=== PATIENT | female | born 1995 | race Caucasian/White ===

== ENCOUNTER 2024-12-17 16:58 | Inpatient (IN) | payer BC, SELFPAY ==
[2024-12-17 17:28] VITALS: BP 128/69; BMI 29.0
[2024-12-17 20:59] LABS: % Basophils 0.3 % (0-2); % Eosinophils 1.1 % (0-6); % Immature Granulocytes 0.9 % (0-0.5); % Lymphocytes 8.6 % (20.5-51.1); % Monocytes 6.2 % (1.7-9.3); % Neutrophils 82.9 % (42.2-75.2); Absolute Basophils 0.1 10^3/uL (0-0.2); Absolute Eosinophils 0.2 10^3/uL (0-0.7); Absolute Immature Granulocytes 0.2 10^3/uL (0-0.05); Absolute Lymphocytes 1.6 10^3/uL (1.2-3.4); Absolute Monocytes 1.2 10^3/uL (0.1-0.6); Absolute Neutrophils 15.5 10^3/uL (1.4-6.5); Hematocrit 36.1 % (37.0-47.0); Hemoglobin 12.7 g/dL (12.0-16.0); Mean Corp Hgb Conc. 35.2 g/dL (33.0-37.0); Mean Corpuscular Hgb 31.4 pg (27.0-31.0); Mean Corpuscular Volume 89.4 fL (81.0-99.0); Mean Platelet Volume 10.1 fL (7.4-10.4); Nucleated Red Blood Cells % 0 %; Platelet Count 200 10^3/uL (130-400); Red Blood Cell Count 4.04 10^6/uL (4.20-5.40); White Blood Cell Count 18.7 10^3/uL (4.8-10.8)
[2024-12-18] MEDS: LR 1000 IV ×3 (03:11→20:03)
[2024-12-18] MEDS: STADOL 1 MG IV (03:11)
[2024-12-18] MEDS: FENTANYL/BUPIVACAINE 100 EPIDURAL ×2 (11:08→18:43)
[2024-12-18] MEDS: SUBLIMAZE 100 MCG EPIDURAL (11:08)
[2024-12-18] MEDS: PITOCIN 30 UNITS/NSS 500 ML IV (15:10)
[2024-12-19] MEDS: MOTRIN 600 MG PO ×4 (02:44→22:32)
[2024-12-19] MEDS: TYLENOL 650 MG PO ×4 (02:45→22:33)
[2024-12-19 05:27] LABS: Hematocrit 32.3 % (37.0-47.0); Hemoglobin 11.2 g/dL (12.0-16.0)
[2024-12-19] MEDS: SENOKOT-S 1 TABLET PO (08:50)
[2024-12-19 14:05] LABS: Syphilis/T. pallidum Ab Reflex Negative (Negative)
[2024-12-19] MEDS: PREPARATION H MAX STRENGTH PAIN RELIEF CREAM 1 APPLIC RECTAL (16:55)
[2024-12-20] MEDS: MOTRIN 600 MG PO ×2 (05:07→10:59)
[2024-12-20] MEDS: TYLENOL 650 MG PO ×2 (05:08→10:59)
[2024-12-20] MEDS: SENOKOT-S 1 TABLET PO (11:00)
== END 2024-12-20 12:37 | disposition home or self-care (01) | DRG 807 ==
LOC: LDRP 16:58
PROVIDERS: Obstetrics & Gynecology; ADMITTING PHYSICIAN Obstetrics & Gynecology
PROC: 3E033VJ Introduction of Other Hormone into Peripheral Vein, Percutaneous Approach (ICD-10-PCS; 2024-12-18)
PROC: 10907ZC Drainage of Amniotic Fluid, Therapeutic from Products of Conception, Via Natural or Artificial Opening (ICD-10-PCS; 2024-12-18)
PROC: 10E0XZZ Delivery of Products of Conception, External Approach (ICD-10-PCS; 2024-12-18)
PROC: 0KQM0ZZ Repair Perineum Muscle, Open Approach (ICD-10-PCS; 2024-12-18)
DX: O48.0 Post-term pregnancy (principal); Z37.0 Single live birth; Z3A.40 40 weeks gestation of pregnancy; O76 Abnormality in fetal heart rate and rhythm complicating labor and delivery; O70.1 Second degree perineal laceration during delivery
CPT/HCPCS: 36415; 85014; 85018; 85025; 86780; 86850; 86900; 86901